=== PATIENT | male | born 1960 | race African-American/Black ===

== ENCOUNTER → 2017-10-30 | Outpatient (CLI) | payer MEDICARE, MEDICAID ==
[~2017-10-30] MED LIST: AC325T PO; ASPI81TA57 PO; CARB-88 PO; FENO134C PO; LATA2.5D5 OU; LOPE2TAB64 PO; POTA10CA43 PO; PROP60CA17 PO; QUET100T32 PO; RISP1TAB2 PO
--- NOTE | 2017-10-30 12:45 | Diagnostic Imaging Report ---
INDICATION: Left leg swelling. Left leg venous Doppler study was performed in the routine fashion with color flow Doppler and waveform analysis. FINDINGS: The left common femoral vein, superficial femoral vein, popliteal vein and visualized portion of the posterior tibial vein show normal compressibility and venous flow patterns. There is normal augmentation. IMPRESSION: No evidence of deep vein thrombosis of the major veins of the left leg. Dictated by: Dictated on workstation # [id number]
== END ==
LOC: RAD 10:00
PROVIDERS: ATTEND Family Medicine
DX: M79.89 Other specified soft tissue disorders (principal)

== ENCOUNTER → 2017-11-27 | Outpatient (CLI) | payer MEDICARE, MEDICAID ==
--- NOTE | 2017-11-27 12:53 | Diagnostic Imaging Report ---
PROCEDURE: US left lower extremity venous. TECHNIQUE: Multiple real-time grayscale images were obtained over the left lower extremity in various projections. Additional duplex Doppler and color Doppler images were also obtained. INDICATION: Left lower extremity swelling and pain. COMPARISON: 10/30/2017. FINDINGS: The left common femoral vein, femoral vein, deep femoral vein, and popliteal vein are normal in appearance. These vessels show normal compressibility, color flow and Doppler augmentation. The visualized deep calf veins demonstrate no distinct intraluminal thrombus. IMPRESSION: 1. No sonographic evidence of deep venous thrombosis in the left lower extremity. Dictated by: Dictated on workstation # [id number]
== END ==
LOC: RAD 12:11
PROVIDERS: ATTEND Family Medicine
DX: M79.662 Pain in left lower leg (principal); M79.89 Other specified soft tissue disorders

== ENCOUNTER → 2020-11-23 | Outpatient (CLI) | payer MEDICARE, MEDICAID ==
--- NOTE | 2020-11-23 12:59 | Diagnostic Imaging Report ---
PROCEDURE: US left lower extremity venous. TECHNIQUE: Multiple real-time grayscale images were obtained over the left lower extremity in various projections. Additional duplex Doppler and color Doppler images were also obtained. INDICATION: Left leg swelling. There is no evidence of left lower extremity DVT. Left lower extremity deep venous system shows normal compressibility with normal response to augmentation and Valsalva. No fluid collection or mass is detected. IMPRESSION: No evidence of left lower extremity DVT. Dictated by: Dictated on workstation # [id number]
== END ==
LOC: RAD 13:00
PROVIDERS: ATTEND Family Medicine
DX: M79.89 Other specified soft tissue disorders (principal)

== ENCOUNTER 2023-03-12 05:27 | Outpatient (CLI) | payer MEDICARE, MEDICAID ==
[~2023-03-12] VITALS: Ht 172.7 cm; Wt 93.2 kg
[~2023-03-12 05:27] MED LIST changes: +BISM262T15 PO; +CICL34.62 TP; +FENO145T26 PO; +QUET100T33 PO; +QUET25TA35 PO; +[UNRECOGNIZED DRUG - CODE] PO
== END 2023-03-12 16:32 | disposition home or self-care (01) ==
LOC: PREOP 05:27
PROVIDERS: ATTEND Dentist General Practice
DX: Z01.818 Encounter for other preprocedural examination (principal)